=== PATIENT | male | born 2000 | race Caucasian/White ===

== ENCOUNTER 2022-06-24 23:02 | Inpatient (IN) | payer BC, SELFPAY ==
[2022-06-24 23:09] VITALS: BP 154/96; PULSE 80; RESP 20; TEMP 36.7; O2SAT 99; BMI 32.5
[2022-06-24 23:38] LABS: MANUAL DIFF FLAG NO
[2022-06-24 23:44] LABS: Basophils Absolute Auto 0.1 X10*3/uL (0.0-0.2); Basophils Percent Auto 0.6 % (0-2); Eosinophils Absolute Auto 0.2 X10*3/uL (0.0-0.4); Eosinophils Percent Auto 1.7 % (0-4); Hematocrit 43.8 % (42.0-52.0); Hemoglobin 14.8 g/dl (14.0-18.0); Imm Gran Abs Auto 0.02 X10*3/uL (0.00-0.03); Imm Gran Pct Auto 0.2 % (0.0-0.4); Lymphocytes Absolute Auto 3.4 X10*3/uL (1.2-4.9); Lymphocytes Percent Auto 38.1 % (20-40); Mean Corpuscular HGB Conc 33.8 g/dl (31.0-36.0); Mean Corpuscular Hemoglobin 29.3 pg (27.0-33.0); Mean Corpuscular Volume 86.7 fL (80.0-98.0); Mean Platelet Volume 8.4 fL (9.4-12.4); Monocytes Absolute Auto 0.5 X10*3/uL (0.1-1.2); Monocytes Percent Auto 5.2 % (2-11); Neutrophils Absolute Auto 4.8 x10*3/uL (2.0-8.3); Neutrophils Percent Auto 54.2 % (45-73); Platelet Count 253 X10*3/uL (160-400); Red Blood Count 5.05 X10*6/uL (4.60-5.80); Red Cell Distribution Width 12.5 % (11.0-16.0); White Blood Count 8.8 X10*3/uL (4.8-10.8)
[2022-06-24 23:44] LABS: COVID-19 Test Negative (Negative); IDNOW Serial# 08D9AD1C
[2022-06-24 23:56] LABS: Ethanol < 10 mg/dL
[2022-06-24 23:57] LABS: Alanine Aminotransferase 45 U/L (0-40); Albumin Level 4.6 g/dL (3.5-5.0); Alkaline Phosphatase 80 U/L (39-117); Anion Gap 12 (12-20); Aspartate Amino Transferase 22 U/L (5-37); Bilirubin Total 0.4 mg/dL (0.0-1.0); Blood Urea Nitrogen 9 mg/dL (9-16); Carbon Dioxide 26 mmol/L (22-29); Chloride 106 mmol/L (96-108); Creatinine Clr Calc Pharmacy 164.5; Estimated Glomerular Filt Rate > 60; Glucose Random 114 mg/dL (60-115); Potassium 4.2 mmol/L (3.3-5.1); Sodium 140 mmol/L (135-145); Total Protein 7.2 g/dL (6.5-8.0)
--- NOTE | 2022-06-24 23:59 | ED.PSYCH ---
HPI - Psych General Chief Complaint: Psychiatric Symptoms Stated Complaint: mental health check up Time Seen by Provider: 06/24/22 23:25 Source: patient Mode of arrival: ambulatory Limitations: no limitations History of Present Illness HPI Narrative: This is a 22-year-old male history anxiety, depression presenting to the emergency department with suicidal, homicidal ideation, non med compliance and requesting to go inpatient. Patient tells me he just has not been feeling right for the past 5 days. He tells me he is not taking his medications because he forgets. Patient reports that he has been cutting himself in hopes to harm himself and so he can ?drink the blood ?. He also reports he wants to cut other people in hopes to drink there blood. Denies visual, auditory and tactile hallucinations. Denies drugs, alcohol and tobacco. Denies medical complaints at this time. Related Data Home Medications Medication Instructions Recorded Confirmed aripiprazole 10 mg tablet 10 mg PO DAILY 06/24/22 06/24/22 cholecalciferol (vitamin D3) 25 25 mcg PO DAILY 06/24/22 06/24/22 mcg (1,000 unit) tablet (Vitamin D3) fluoxetine 20 mg capsule 80 mg PO DAILY 06/24/22 06/24/22 haloperidol 0.5 mg tablet 0.5 mg PO QAM 06/24/22 06/24/22 haloperidol 0.5 mg tablet 1 mg PO BEDTIME 06/24/22 06/24/22 hydroxyzine HCl 50 mg tablet 100 mg PO BEDTIME 06/24/22 06/24/22 methylphenidate HCl 54 mg 54 mg PO QAM 06/24/22 06/24/22 tablet,extended release 24 hr pyridoxine (vitamin B6) 100 mg 100 mg PO DAILY 06/24/22 06/24/22 tablet Allergies Allergy/AdvReac Type Severity Reaction Status Date / Time amoxicillin Allergy Rash Verified 06/24/22 23:17 Review of Systems Review of Systems: Constitutional : No Weight loss, No Fever, No Chills, No Fatigue, No Malaise ENT/Mouth : No sore throat, No Rhinorrhea Eyes: No Eye Pain, No Swelling, No Redness Cardiovascular : No Chest Pain, No SOB, No Dyspnea on Exertion, No Orthopnea, No Edema, No Palpitations Respiratory : No Cough, No Sputum, No Wheezing Gastrointestinal : No Nausea, No Vomiting, No Diarrhea, No Constipation, No abdominal Pain, No Hematochezia, No Melena Genitourinary : No Dysuria, No Urinary Frequency, No Hematuria, Musculoskeletal : No joint pain, No Myalgias, No Joint Swelling Skin : No Skin Lesions, No rash Neuro : No Weakness, No Numbness, No Dizziness, No Headache Psych : No Anxiety/Panic, No Depression, + SI & HI All other systems reviewed and are negative Yes all other systems are reviewed and are negative [facility] Past Medical History Attestation statement: The following information was validated with the patient. Source: old records reviewed and nursing notes reviewed Social History Social History Advance Directives: No Advance Directives Information Provided: Yes Healthcare Proxy: No Guardian: No Physical Exam Vital Signs: Vital Signs: Last Vital Signs Temp 98.1 F 06/24/22 23:09 Pulse 80 06/24/22 23:09 Resp 20 06/24/22 23:09 BP 154/96 H 06/24/22 23:09 Pulse Ox 99 06/24/22 23:09 BMI result Body Mass Index 32.5 vss Appearance: Alert.? Oriented X3.? No acute distress.? Head: Normocephalic, atraumatic, no step-offs or deformities Eyes: Pupils equal, round and reactive to light.? ENT: Pharynx normal.? Neck: Normal inspection.? Neck supple.? CVS: Normal heart rate and rhythm.? Pulses normal.? Respiratory: No respiratory distress.? Breath sounds normal.? Abdomen: Soft and nontender.? Skin: Skin warm and dry.? Normal skin color.? Normal skin turgor.? Extremities: No lower extremity edema.? No calf ttp. 5/5 strength to bilateral upper and lower extremities Neuro: Oriented X 3.? No motor deficit.? No sensory deficit. CN 2-12 intact Course Reevaluation(s) Reevaluation #1: CBC within normal limits. Chemistry with no acute findings requiring intervention. Ethanol negative. COVID negative. This time patient to be placed into observation to allow more time to be evaluated by the behavioral health team. At time observation was started patient common cooperative no acute distress will continue to monitor Time: 00:02 Reevaluation #2: Inpatient bed search Medical Decision Making Medical Decision Making [facility] Narrative: 2340 22-year-old male presents with suicidal and homicidal ideation for the past 5 days and non med compliant. He states he is looking to drink people's blood and his own blood. Physical exam benign Concerns for possible schizophrenia, bipolar disorder, severe depression, anxiety. Unlikely metabolic derangement Plan medical clearance evaluation by the behavioral health team I suspect this patient would benefit from inpatient psychiatric admission Differential Diagnosis Differential Diagnoses: The differential diagnosis associated with the presentation includes Concerns for possible schizophrenia, bipolar disorder, severe depression, anxiety. Unlikely metabolic derangement Admission/Observation Consideration of admission/observation: Escalation of care including admission/observation considered Lab Data MDM Lab Attestation statement: I reviewed the patient's lab results. 06/24/22 23:31 06/24/22 23:31 Labs: Lab Results 06/24/22 06/24/22 06/24/22 Range/Units 23:19 23:31 23:31 WBC 8.8 (4.8-10.8) X10*3/uL RBC 5.05 (4.60-5.80) X10*6/uL Hgb 14.8 (14.0-18.0) g/dl Hct 43.8 (42.0-52.0) % MCV 86.7 (80.0-98.0) fL MCH 29.3 (27.0-33.0) pg MCHC 33.8 (31.0-36.0) g/dl RDW 12.5 (11.0-16.0) % Plt Count 253 (160-400) X10*3/uL MPV 8.4 L (9.4-12.4) fL Immature Gran % (Auto) 0.2 (0.0-0.4) % Neut % (Auto) 54.2 (45-73) % Lymph % (Auto) 38.1 (20-40) % [place] % (Auto) 5.2 (2-11) % Eos % (Auto) 1.7 (0-4) % Baso % (Auto) 0.6 (0-2) % Lymph # (Auto) 3.4 (1.2-4.9) X10*3/uL [place] # (Auto) 0.5 (0.1-1.2) X10*3/uL Eos # (Auto) 0.2 (0.0-0.4) X10*3/uL Baso # (Auto) 0.1 (0.0-0.2) X10*3/uL Abs Immat Gran (auto) 0.02 (0.00-0.03) X10*3/uL Absolute Neuts (auto) 4.8 (2.0-8.3) x10*3/uL Absolute Nucleated RBC 0.000 (0.0-0.012) X10*3/uL Nucleated RBC % (auto) 0.0 (0.0-0.2) /100WBC Sodium 140 (135-145) mmol/L Potassium 4.2 (3.3-5.1) mmol/L Chloride 106 (96-108) mmol/L Carbon Dioxide 26 (22-29) mmol/L Anion Gap 12 (12-20) BUN 9 (9-16) mg/dL Creatinine 0.82 (0.5-1.4) mg/dL Estim Creat Clear Calc 164.5 Estimated GFR > 60 Random Glucose 114 (60-115) mg/dL Calcium 10.0 (8.4-10.2) mg/dL Total Bilirubin 0.4 (0.0-1.0) mg/dL AST 22 (5-37) U/L ALT 45 H (0-40) U/L Alkaline Phosphatase 80 (39-117) U/L Total Protein 7.2 (6.5-8.0) g/dL Albumin 4.6 (3.5-5.0) g/dL Urine Opiates Screen (Not Detect) Urine Fentanyl Screen (Not Detect) Ur Barbiturates Screen (Not Detect) Ur Phencyclidine Scrn (Not Detect) Ur Amphetamines Screen (Not Detect) U Benzodiazepines Scrn (Not Detect) Urine Cocaine Screen (Not Detect) U Marijuana (THC) Screen (Not Detect) Ethyl Alcohol mg/dL COVID-19 (ABI) Negative (Negative) COVID-19 Clin Com See Note 06/24/22 06/24/22 Range/Units 23:31 23:41 WBC (4.8-10.8) X10*3/uL RBC (4.60-5.80) X10*6/uL Hgb (14.0-18.0) g/dl Hct (42.0-52.0) % MCV (80.0-98.0) fL MCH (27.0-33.0) pg MCHC (31.0-36.0) g/dl RDW (11.0-16.0) % Plt Count (160-400) X10*3/uL MPV (9.4-12.4) fL Immature Gran % (Auto) (0.0-0.4) % Neut % (Auto) (45-73) % Lymph % (Auto) (20-40) % [place] % (Auto) (2-11) % Eos % (Auto) (0-4) % Baso % (Auto) (0-2) % Lymph # (Auto) (1.2-4.9) X10*3/uL [place] # (Auto) (0.1-1.2) X10*3/uL Eos # (Auto) (0.0-0.4) X10*3/uL Baso # (Auto) (0.0-0.2) X10*3/uL Abs Immat Gran (auto) (0.00-0.03) X10*3/uL Absolute Neuts (auto) (2.0-8.3) x10*3/uL Absolute Nucleated RBC (0.0-0.012) X10*3/uL Nucleated RBC % (auto) (0.0-0.2) /100WBC Sodium (135-145) mmol/L Potassium (3.3-5.1) mmol/L Chloride (96-108) mmol/L Carbon Dioxide (22-29) mmol/L Anion Gap (12-20) BUN (9-16) mg/dL Creatinine (0.5-1.4) mg/dL Estim Creat Clear Calc Estimated GFR Random Glucose (60-115) mg/dL Calcium (8.4-10.2) mg/dL Total Bilirubin (0.0-1.0) mg/dL AST (5-37) U/L ALT (0-40) U/L Alkaline Phosphatase (39-117) U/L Total Protein (6.5-8.0) g/dL Albumin (3.5-5.0) g/dL Urine Opiates Screen Not Detected (Not Detect) Urine Fentanyl Screen Not Detected (Not Detect) Ur Barbiturates Screen Not Detected (Not Detect) Ur Phencyclidine Scrn Not Detected (Not Detect) Ur Amphetamines Screen Not Detected (Not Detect) U Benzodiazepines Scrn Not Detected (Not Detect) Urine Cocaine Screen Not Detected (Not Detect) U Marijuana (THC) Screen Not Detected (Not Detect) Ethyl Alcohol < 10 mg/dL COVID-19 (ABI) (Negative) COVID-19 Clin Com Core Measures AMI core measures followed: Yes Measure exclusions: not indicated Discharge Plan Discharge Clinical Impression: Acute anxiety, Suicidal ideation, Homicidal ideation Patient Disposition: Still a Patient Prescriptions: No Action haloperidol 0.5 mg tablet 0.5 mg PO QAM haloperidol 0.5 mg tablet 1 mg PO BEDTIME methylphenidate HCl 54 mg tablet extended release 24hr 54 mg PO QAM hydroxyzine HCl 50 mg tablet 100 mg PO BEDTIME pyridoxine (vitamin B6) 100 mg tablet 100 mg PO DAILY fluoxetine 20 mg capsule 80 mg PO DAILY aripiprazole 10 mg tablet 10 mg PO DAILY cholecalciferol (vitamin D3) [Vitamin D3] 25 mcg (1,000 unit) tablet 25 mcg PO DAILY Interventions: [place]-Suicide Risk Severity Scale Last Done: 06/25/22 00:43
[2022-06-25 00:05] LABS: Amphetamine Screen Urine Not Detected (Not Detect); Barbiturates, Urine Not Detected (Not Detect); Benzodiazepines Screen Urine Not Detected (Not Detect); Cannabinoid Screen Urine Not Detected (Not Detect); Cocaine Screen Urine Not Detected (Not Detect); Opiate Screen Urine Not Detected (Not Detect); Phencyclidine Screen Urine Not Detected (Not Detect)
[2022-06-25 00:10] LABS: Fentanyl, urine Not Detected (Not Detect)
--- NOTE | 2022-06-25 05:57 | PC.NURSE ---
Patient slept through the night, no distress observed/reported, disposition per care team is section 12 inpatient bed search, behavior pleasant and non concerning, VSS, labs completed/resulted, med rec completed/pending provider's approval, will continue to monitor.
--- NOTE | 2022-06-25 13:34 | MHC.CARE ---
Statewide bedsearch completed. [facility] has beds but are not accepting referrals for review at this time due to unit acuity and staffing. Bedsearch exhausted for today.
--- NOTE | 2022-06-25 14:50 | PC.NURSE ---
Mother and Father in, Releases signed and in chart.
--- NOTE | 2022-06-25 16:30 | PC.NURSE ---
Pt denies SI, HI, reports wanting to drink others blood but claims he only drinks his own blood. Pt slept this shift. Ate meals and watched TV.
[2022-06-25 19:54] VITALS: BP 123/69; PULSE 69; RESP 16; TEMP 36.6; O2SAT 99
[2022-06-26 05:32] VITALS: BP 124/79; PULSE 75; RESP 16; TEMP 36.7; O2SAT 98
--- NOTE | 2022-06-26 10:41 | PM.PSYCN ---
History of Present Illness Date of Service: 06/26/2022 Chief Complaint: mental health check up Reason for Consult: psychosis Requesting physician: Ric Wells Discussed with referring provider: Yes Sources of Information: patient interviewed, chart reviewed and crisis/core team assessment reviewed HPI Narrative: Mr. Parikh is a 22 year-old male with hx of schizoaffective disorder who was brought to [facility] by mother due to increase ideas of needing to drink his blood and other people's blood to prevent his blood from evaporating. This is different from suicidality in that pt is not trying to end his life, although inadvertently can cause significant harm if he injuries himself to drink his blood. In the ED, his utox is negative. Pt reports he has not taken medications for a week or more. Pt reports he has been working at [employer] for 5 years and loves it. He reports he noticed that he was feeling weak and fatigued which he explains is when he knows his blood is evaporating. Pt reports he does know that he has to drink his blood to live longer. When asked about drinking other people's blood pt states he is not planning to do that, that he is more concern about drinking his own blood. He reports sleeping and eating well. He denies visual or auditory hallucinations. Collateral information was gathered from his OP psych provider Nancy Zambrano who reports pt has been dx between personality to schizoaffective and OCD. Per psych provider, pt has had on an off ideas of needing to drink his own blood to increase his libido to doing so to prevent from evaporating. Nancy Zambrano reports that he has poked himself superficially in the past but no requiring medical intervention. Nancy also reports that it is new that he reports need to drink other people's blood. Diagnostics Vital Signs (24Hr): Vital Signs - 24 hr 06/25/22 19:54 06/26/22 05:32 Temperature 97.8 F 98.0 F Pulse Rate 69 75 Respiratory Rate 16 16 Blood Pressure 123/69 124/79 Pulse Oximetry 99 98 Oxygen Delivery Method Room Air Room Air BMI result Body Mass Index 32.5 Labs 06/24/22 23:31 06/24/22 23:31 Labs: Laboratory Results - last 48 hr 06/24/22 06/24/22 06/24/22 23:19 23:31 23:31 WBC 8.8 RBC 5.05 Hgb 14.8 Hct 43.8 MCV 86.7 MCH 29.3 MCHC 33.8 RDW 12.5 Plt Count 253 MPV 8.4 L Immature Gran % (Auto) 0.2 Neut % (Auto) 54.2 Lymph % (Auto) 38.1 [place] % (Auto) 5.2 Eos % (Auto) 1.7 Baso % (Auto) 0.6 Lymph # (Auto) 3.4 [place] # (Auto) 0.5 Eos # (Auto) 0.2 Baso # (Auto) 0.1 Abs Immat Gran (auto) 0.02 Absolute Neuts (auto) 4.8 Absolute Nucleated RBC 0.000 Nucleated RBC % (auto) 0.0 Sodium 140 Potassium 4.2 Chloride 106 Carbon Dioxide 26 Anion Gap 12 BUN 9 Creatinine 0.82 Estim Creat Clear Calc 164.5 Estimated GFR > 60 Random Glucose 114 Calcium 10.0 Total Bilirubin 0.4 AST 22 ALT 45 H Alkaline Phosphatase 80 Total Protein 7.2 Albumin 4.6 Urine Opiates Screen Urine Fentanyl Screen Ur Barbiturates Screen Ur Phencyclidine Scrn Ur Amphetamines Screen U Benzodiazepines Scrn Urine Cocaine Screen U Marijuana (THC) Screen Ethyl Alcohol COVID-19 (ABI) Negative COVID-19 Clin Com See Note 06/24/22 06/24/22 23:31 23:41 WBC RBC Hgb Hct MCV MCH MCHC RDW Plt Count MPV Immature Gran % (Auto) Neut % (Auto) Lymph % (Auto) [place] % (Auto) Eos % (Auto) Baso % (Auto) Lymph # (Auto) [place] # (Auto) Eos # (Auto) Baso # (Auto) Abs Immat Gran (auto) Absolute Neuts (auto) Absolute Nucleated RBC Nucleated RBC % (auto) Sodium Potassium Chloride Carbon Dioxide Anion Gap BUN Creatinine Estim Creat Clear Calc Estimated GFR Random Glucose Calcium Total Bilirubin AST ALT Alkaline Phosphatase Total Protein Albumin Urine Opiates Screen Not Detected Urine Fentanyl Screen Not Detected Ur Barbiturates Screen Not Detected Ur Phencyclidine Scrn Not Detected Ur Amphetamines Screen Not Detected U Benzodiazepines Scrn Not Detected Urine Cocaine Screen Not Detected U Marijuana (THC) Screen Not Detected Ethyl Alcohol < 10 COVID-19 (ABI) COVID-19 Clin Com Mental Status Exam Mental Status Exam Narrative: Appearance: wearing hospital gown, fair hygiene, in NAD Behavior: cooperative Speech: clear, normal rate/rhythm/volume, spontaneous Psychomotor: no agitation or retardation noted TP: linear TC: with ideas of needing to drink his blood but does any need to drink other's blood Mood: better Affect: congruent, brighten with talking about his job and how much he loves his job Si: denies- idea of drinking his own blood is not to end his life but prolong it. HI: denies Delusions: ideas of blood evaporating VH/AH: none Insight/judgment: fair x 2. Memory/cog: alert, oriented x 3. grossly intact to conversational testing. Medications Allergies Allergies Allergy/AdvReac Type Severity Reaction Status Date / Time amoxicillin Allergy Rash Verified 06/24/22 23:17 Assessment & Plan Assessment & Plan (1) Schizophrenia: Status: Acute Code(s): F20.9 - Schizophrenia, unspecified Plan Mr. Parikh is 22 year-old male with hx of schizoaffective, OCD, to personality disorder with periods of reporting ideas of needing to drink his blood for number of reasons including to prevent it from evaporating to increasing libido. He also reported wanting to drink other people's blood which he now denies. He presents with a linear thought process. no significant decline in level of functioning as typically seen in schizoprenia-spectrum disorders. When trying to assess whether these were intrusive thoughts like in OCD or delusions, pt reports he does believe he needs to drink his own blood to live longer. He denies any plan or intent to harm anyone or even himself. Pt on different medications including stimulant, high dose prozac, low dose haldol and abilify. Discussed risks, benefits and alternative treatment options with patient and his outpatient director of psychology Nancy Zambrano. Will continue haldol for now at higher dose, hold on stimulant and prozac as may worsen psychosis but this can be reassessed. PLAN 1. Pt voluntary for inpatient level of care. 2. will start haldol 5 mg po daily. Total time managing care of this patient today __25__ minutes.
[2022-06-26] MEDS: Cholecalciferol (Vitamin D3) 25 MCG TABLET PO (12:51)
[2022-06-26] MEDS: HaloperidoL 5 MG TABLET PO (12:51)
[2022-06-26 13:50] LABS: Appearance Urine Clear; Color Urine Yellow; Glucose Urine UA Negative (Negative); Leukocyte Esterase Urine Negative (Negative); Nitrite Urine Negative (Negative); PH 6.5 (5.0-9.0); Specific Gravity - Urine <= 1.005 (1.005-1.025); Urine Blood Negative (Negative); Urine Ketones Negative (Negative); Urine Protein Negative (Neg-Trace)
[2022-06-26 18:46] VITALS: BP 131/76; PULSE 83; TEMP 36.4
[2022-06-26] MEDS: hydrOXYzine HCL 50 MG TABLET 100 MG PO (20:14)
[2022-06-26] MEDS: traZODone HCL 50 MG TABLET PO (20:14)
--- NOTE | 2022-06-26 20:21 | PC.ADMIT ---
Pt is a 22 year old male presenting to [facility] [place] with SI/HI with plans to cut himself and others to drink his blood and others. Pt UTOX negative for all substances, pt also denies other substance use. Pt is wearing hospital johnnies, also wears glasses. Pt blood pressure is131/76, pulse 83, and temp 97.6. Pt has been non medication compliant for the past month. Pt stated I just forget to take my meds then after awhile I feel like I don't need them but I do. Pt reports feeling like he's in a daze. Pt denies SI/HI at this time. Pt also denies AH/VH. Pt reported he used to cut his knees to drink his blood but the cuts are now healed. Pt denies ever cutting others, hurting others, or drinking their blood. Pt reports issues falling asleep. Pt states he has no anxiety and no depression. Pt is looking to get his medications figured out. Pt is pleasant, calm and in behavioral control. Pt states he is safe on the unit, can come to staff for help if feeling suicidal or homicidal. MD aware of admission, orders placed, monitor for safety and begin treatment plan.
[2022-06-27 08:05] VITALS: BP 120/75; PULSE 89; RESP 16; TEMP 36.3; O2SAT 99
[2022-06-27] MEDS: Pyridoxine HCl (Vitamin B6) 50 MG TABLET 100 MG PO (08:24)
[2022-06-27] MEDS: Cholecalciferol (Vitamin D3) 25 MCG TABLET PO (08:24)
[2022-06-27] MEDS: HaloperidoL 5 MG TABLET PO (08:24)
[2022-06-27 11:00] LABS: Estimated Average Glucose 103 mg/dL; Hemoglobin A1c % 5.2 %
[2022-06-27 12:46] LABS: Alanine Aminotransferase 52 U/L (0-40); Albumin Level 4.3 g/dL (3.5-5.0); Alkaline Phosphatase 73 U/L (39-117); Anion Gap 10 (12-20); Aspartate Amino Transferase 25 U/L (5-37); Bilirubin Total 0.7 mg/dL (0.0-1.0); Blood Urea Nitrogen 10 mg/dL (9-16); Calcium 9.8 mg/dL (8.4-10.2); Carbon Dioxide 31 mmol/L (22-29); Chloride 105 mmol/L (96-108); Cholesterol 219 mg/dL; Creatinine Clr Calc Pharmacy 143.5; Estimated Glomerular Filt Rate > 60; Glucose Fasting 85 mg/dL (60-99); HDL Cholesterol 39 mg/dL; LDL Cholesterol Calculated 116 mg/dl; Potassium 4.7 mmol/L (3.3-5.1); Sodium 141 mmol/L (135-145); Triglycerides 324 mg/dL
[2022-06-27 12:54] LABS: Thyroid Stimulating Hormone 0.99 uIU/mL (0.32-4.0); Vitamin B12 542 pg/mL (200-900)
[2022-06-27] MEDS: FLUoxetine HCl 20 MG CAPSULE 80 MG PO (13:02)
--- NOTE | 2022-06-27 14:38 | P.HPPS_ITS ---
Documented by User: Cheyanne Proctor NP 06/27/22 16:39 HPI Date of Service: 06/27/22 Chief Complaint: Psychosis Sources of Information: patient interviewed, chart reviewed and crisis/core team assessment reviewed HPI Subjective Notes: Bain Warning and Conditional Voluntary Medical Problems Affecting Mental Status: No Narrative: Patient is a 22 year old male who carries a diagnosis of schizoaffective d/o depressive type, that self presented to the [facility] secondary to suicidal and homicidal ideation with thoughts of cutting himself and others, to drink their blood. Patient reports he has not been consistently taking his medications for the past month. Patient reports that once he feels fine he feels like he does not need them. Patient stated he came to the hospital because he wanted to start his mediations again in a safe place and wanted to get on an injectable medication . Patient reports he has been on the same mediation regimen for the past two years and have been helpful in his symptoms.Patient reports the delusions of drinking blood began two years ago and believes he is a vampire. Patient stated, I don't know where it came from. I was just in the shower once day and wondered what blood tasted like and it started from there. I have to drink blood to stay young and not age. I haven't cut my knees in a month and haven't drank blood in 2 months . Patient reports when he has thoughts of drinking other peoples blood it is not to kill them . Patient denies any pe rceptual disturbances at this time. Patient reports he was born a vampire and he is the only one he knows. Patient stated, it's not that I need to drink blood, it's that I feel like I should . Past Psychiatric History: Patient was diagnosed with ADHD as a child, Bipolar d/o during adolescents and recently, Schizoaffective d/o, depressive type. Patient sees Elizabeth Zambrano as a prescriber and Milagros at [facility] for therapy. Patient has had one prior inpatient admission in 2019 at [facility]. Patient has a history of noncompliance with medication and treatment. Per crisis report, the patients mother states that he never takes the advice of his therapists or [facility] workers . Patient states he is hoping to get an injectable medication once a month since he forgets to take his meds and thinks he doesn't need them when he feels better . No history of suicide attempts. Patient does have a history of cutting himself to drink his own blood. Patient stated, I don't cut to feel good. I cut myself to drink blood . Patient reports he sleeps 8-9hrs a night. Patient denies any hiro symptoms, other than excessive spending. Patient stated, I like buying collectables . [facility] Narrative: Patient denies any medical issues. Narrative: Elizabeth Zambrano is prescriber. Milagros [facility] is therapist. Patient has had one previous inpatient hospitalization in 2019 at [facility]. Family History: Mother and sister have depression. Social History: Lives with mother, father and grandfather. Has been working at [employer], highway design engineer, for the past five years. Substance History: None Trauma History: None Diagnostics Vital Signs (24Hr): Vital Signs - 24 hr 06/26/22 18:46 06/27/22 08:05 Temperature 97.6 F 97.3 F Pulse Rate 83 89 Respiratory Rate 16 Blood Pressure 131/76 120/75 Pulse Oximetry 99 BMI result Body Mass Index 32.5 Labs 06/24/22 23:31 06/27/22 08:08 Labs: Laboratory Results - last 48 hr 06/26/22 06/27/22 06/27/22 13:33 08:08 08:08 Sodium 141 Potassium 4.7 Chloride 105 Carbon Dioxide 31 H Anion Gap 10 L BUN 10 Creatinine 0.94 Estim Creat Clear Calc 143.5 Estimated GFR > 60 Fasting Glucose 85 Estimat Average Glucose 103 Hemoglobin A1c % 5.2 Calcium 9.8 Total Bilirubin 0.7 AST 25 ALT 52 H Alkaline Phosphatase 73 Total Protein 7.0 Albumin 4.3 Triglycerides 324 Cholesterol 219 LDL Cholesterol, Calc 116 HDL Cholesterol 39 Vitamin B12 542 TSH 0.99 Urine Color Yellow Urine Appearance Clear Urine pH 6.5 Ur Specific [place] <= 1.005 Urine Protein Negative Urine Glucose (UA) Negative Urine Ketones Negative Urine Blood Negative Urine Nitrite Negative Ur Leukocyte Esterase Negative Meds/Allergies Meds Home Medications Medication Instructions Recorded Confirmed Type aripiprazole 10 mg tablet 10 mg PO DAILY 06/24/22 06/24/22 History cholecalciferol (vitamin D3) 25 25 mcg PO DAILY 06/24/22 06/24/22 History mcg (1,000 unit) tablet (Vitamin D3) fluoxetine 20 mg capsule 80 mg PO DAILY 06/24/22 06/24/22 History haloperidol 0.5 mg tablet 0.5 mg PO QAM 06/24/22 06/24/22 History haloperidol 0.5 mg tablet 1 mg PO BEDTIME 06/24/22 06/24/22 History hydroxyzine HCl 50 mg tablet 100 mg PO BEDTIME 06/24/22 06/24/22 History methylphenidate HCl 54 mg 54 mg PO QAM 06/24/22 06/24/22 History tablet,extended release 24 hr pyridoxine (vitamin B6) 100 mg 100 mg PO DAILY 06/24/22 06/24/22 History tablet Allergies Allergies Allergy/AdvReac Type Severity Reaction Status Date / Time amoxicillin Allergy Rash Verified 06/24/22 23:17 Mental Status Exam Mental Status Exam Narrative: Pt is alert and oriented; behavior is cooperative, friendly and calm; patient is not in distress; dressed in casual attire; mood is described as okay and affect congruent; eye contact appropriate; Speech is normal rate, volume and prosody and not pressured; no psychomotor agitation/retardation present; thought process is organized and goal directed; Thought content is on tx; otherwise pertinent to relevant topics; Patient presents with delusions of needing to drink blood to remain young and live forever . denies any SI/HI. There is no evidence of perceptual disturbance. Patients insight and judgment appear poor. Assessment & Plan Assessment & Plan (1) Delusional disorder: Status: Acute Code(s): F22 - Delusional disorders Plan PLAN: CV 15 min safety checks Obtain collateral information DC Haldol 5mg PO daily Continue Abilify 10mg PO daily Continue Fluoxetine 80mg PO daily Continue Hydroxyzine 100mg PO bedtime 06/27: Patient reports he would like to receive an injectable medication so he doesn't have to take medication everyday . Patient calm and cooperative during 1:1 meeting. Patient is hoping to be discharged soon and return to work. Based off of initial interview with T/W, patient could have delusional d/o d/t denying any history of auditory or visual hallucinations. 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 Patient educated on: medication risk/benefits Informed Consent: understands Reason for continued inpatient stay Substantial Risk for: med/psych decompensation Statement Statement: I have reviewed the history and physical and performed a pertinent examination on my patient. No changes have occurred unless specified. If the History and Physical was not performed prior to admission, the Hospitalist's service will be consulted for completing the admission physical. Time Spent With Patient Time: Total time managing care of this patient today ____ minutes. Documented by User: Chidi Alfaro MD 06/27/22 16:41 HPI Chief Complaint: Psychosis HPI Narrative: Patient is a 22 year old male who carries a diagnosis of schizoaffective d/o depressive type, that self-presented to the [facility] secondary to increasing delusional ideations and thoughts of cutting himself and others, to drink their blood in face of going off medications. On medications for the past 2 years, he reports he feels fine but then eventually does not feel he still needs them and stopped taking them consistently about a month ago. Since then his thoughts about being a vampire and and urges to drink his and others blood have increased. Patient reports that for the past 2 years, he believes he was born a vampire and subsequently has desire to drink his and others blood.. Patient stated, I don't know where it came from. I was just in the shower once day and wondered what blood tasted like and it started from there. I have to drink blood to stay young and not age. I haven't cut my knees in a month and haven't drank blood in 2 months . Patient stated he came to the hospital because he wanted to start his mediations again in a safe place and wanted to get on an injectable medication in effort to mitigate these urges. Patient reports when he has thoughts of drinking other peoples blood it is not to kill them . Patient denies any perceptual disturbances at this time. Patient reports he was born a vampire and he is the only one he knows. Patient stated, it's not that I need to drink blood, it's that I feel like I should . Patient denies any any AVH; he denies SI at all past or present; denies any HI at all ever; denies history of manic type behaviors or episodes; denies any drug or alcohol abuse. Patient is amenable to restarting Abilify and Prozac and may be haldol. Care team note reported patient had SI and HI however patient adamantly refuse any such thoughts. Medical Evaluation Reviewed: Yes Diagnostics Labs 06/24/22 23:31 06/27/22 08:08 Meds/Allergies Meds Home Medications Medication Instructions Recorded Confirmed Type aripiprazole 10 mg tablet 10 mg PO DAILY 06/24/22 06/24/22 History cholecalciferol (vitamin D3) 25 25 mcg PO DAILY 06/24/22 06/24/22 History mcg (1,000 unit) tablet (Vitamin D3) fluoxetine 20 mg capsule 80 mg PO DAILY 06/24/22 06/24/22 History haloperidol 0.5 mg tablet 0.5 mg PO QAM 06/24/22 06/24/22 History haloperidol 0.5 mg tablet 1 mg PO BEDTIME 06/24/22 06/24/22 History hydroxyzine HCl 50 mg tablet 100 mg PO BEDTIME 06/24/22 06/24/22 History methylphenidate HCl 54 mg 54 mg PO QAM 06/24/22 06/24/22 History tablet,extended release 24 hr pyridoxine (vitamin B6) 100 mg 100 mg PO DAILY 06/24/22 06/24/22 History tablet Allergies Allergies Allergy/AdvReac Type Severity Reaction Status Date / Time amoxicillin Allergy Rash Verified 06/24/22 23:17 Assessment & Plan Assessment & Plan (1) Delusional disorder: Status: Acute Code(s): F22 - Delusional disorders Assessment and Plan: r/o schizoaffective Plan Patient is a 22 year old male who carries a diagnosis of schizoaffective d/o de pressive type, that self-presented to the [facility] secondary to increasing delusional ideations and thoughts of cutting himself and others, to drink their blood in face of going off medications. -Patient reports he would like to receive an injectable medication so he doesn't have to take medication everyday . Patient calm and cooperative during 1:1 meeting; patient organized in speech and behavior. 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 Based off of initial interview with T/W, Will change dx to delusional d/o since pt denying any history of auditory or visual hallucinations; however, will leave as provisional diagnosis since meeting patient for the 1st time. 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 There is some thoughts about some OCD like symptoms as patient reports he feels he should drink people's blood; patient has a history of depression PLAN: CV 15 min safety checks Obtain collateral information DC Haldol 5mg PO daily; patient was only ever on total daily dose of 1.5 mg daily; since patient reports Abilify was working, will DC this med to avoid polypharmacy Continue Abilify 10mg PO daily; will consider long-acting Abilify Maintena Continue Fluoxetine 80mg PO daily Continue Hydroxyzine 100mg PO bedtime Past med trials: Risperidone Grace Parsons Patient educated on: diagnosis Informed Consent: does not understand and further education needed
[2022-06-27 16:38] VITALS: BP 131/76; PULSE 64; TEMP 36.7
[2022-06-27] MEDS: traZODone HCL 50 MG TABLET PO (20:05)
[2022-06-27] MEDS: hydrOXYzine HCL 50 MG TABLET 100 MG PO (20:05)
[2022-06-28 08:41] VITALS: BP 130/58; PULSE 81; RESP 18; TEMP 36.7; O2SAT 100
[2022-06-28] MEDS: Cholecalciferol (Vitamin D3) 25 MCG TABLET PO (08:46)
[2022-06-28] MEDS: ARIPiprazole 10 MG TABLET PO (08:46)
[2022-06-28] MEDS: FLUoxetine HCl 20 MG CAPSULE 80 MG PO (08:46)
[2022-06-28] MEDS: Pyridoxine HCl (Vitamin B6) 50 MG TABLET 100 MG PO (08:46)
--- NOTE | 2022-06-28 13:08 | P.PNPSI_ITS ---
Subjective Subjective Date of Service: 06/28/22 Reason For Visit: Psychosis Subjective Notes: Conditional Voluntary Medical Problems Affecting Mental Status: No Interim History: Patient reports feeling fine. Continues to have delusions that he is a vampire and needs to drink blood. Patient is still considering if he would like to be on a long acting injectable or continue taking PO medications. Medication Compliance: Yes Side effects from medications: No Attending Groups: Yes Review of Systems Acute medical concerns: No Medical Review of Systems: unchanged Review of Systems Review of Systems Constitutional : No Weight loss, No Fever, No Chills, No Fatigue, No Malaise ENT/Mouth : No sore throat, No Rhinorrhea Eyes: No Eye Pain, No Swelling, No Redness Cardiovascular : No Chest Pain, No SOB, No Dyspnea on Exertion, No Orthopnea, No Edema, No Palpitations Respiratory : No Cough, No Sputum, No Wheezing Gastrointestinal : No Nausea, No Vomiting, No Diarrhea, No Constipation, No abdominal Pain, No Hematochezia, No Melena Genitourinary : No Dysuria, No Urinary Frequency, No Hematuria, Musculoskeletal : No joint pain, No Myalgias, No Joint Swelling Skin : No Skin Lesions, No rash Neuro : No Weakness, No Numbness, No Dizziness, No Headache Psych : No Anxiety/Panic, No Depression, + SI & HI All other systems reviewed and are negative Yes all other systems are reviewed and are negative Constitutional: Reports as per HPI Eyes: Reports as per HPI Reports as per HPI Cardiovascular: Reports as per HPI Respiratory: Reports as per HPI Gastrointestinal: Reports as per HPI Genitourinary: Reports as per HPI Musculoskeletal: Reports as per HPI Skin/Breast: Reports as per HPI Reports as per HPI Psychiatric: Reports as per HPI Endocrine: Reports as per HPI Hematologic/Lymphatic: Reports as per HPI Allergic/Immunologic: Reports as per HPI Mental Status Exam Mental Status Exam Narrative: Pt is alert and oriented; behavior is cooperative, friendly and calm; patient is not in distress; dressed in casual attire; mood is described as fine and affect congruent; eye contact appropriate; Speech is normal rate, volume and pr osody and not pressured; no psychomotor agitation/retardation present; thought process is organized and goal directed; Thought content is on tx; otherwise pertinent to relevant topics; Patient continues to express delusions of being a vampire and needing to drink blood. Patient stated, last night the feelings of wanting to cut other people went away . denies any SI/HI. There is no evidence of perceptual disturbance. Patients insight and judgment appear poor. Diagnostics Vital Signs (24Hr): Vital Signs - 24 hr 06/27/22 16:38 06/28/22 08:41 Temperature 98.1 F 98.0 F Pulse Rate 64 81 Respiratory Rate 18 Blood Pressure 131/76 130/58 L Pulse Oximetry 100 Oxygen Delivery Method Room Air BMI result Body Mass Index 32.5 Labs 06/24/22 23:31 06/27/22 08:08 Labs: Laboratory Results - last 48 hr 06/26/22 06/27/22 06/27/22 13:33 08:08 08:08 Sodium 141 Potassium 4.7 Chloride 105 Carbon Dioxide 31 H Anion Gap 10 L BUN 10 Creatinine 0.94 Estim Creat Clear Calc 143.5 Estimated GFR > 60 Fasting Glucose 85 Estimat Average Glucose 103 Hemoglobin A1c % 5.2 Calcium 9.8 Total Bilirubin 0.7 AST 25 ALT 52 H Alkaline Phosphatase 73 Total Protein 7.0 Albumin 4.3 Triglycerides 324 Cholesterol 219 LDL Cholesterol, Calc 116 HDL Cholesterol 39 Vitamin B12 542 TSH 0.99 Urine Color Yellow Urine Appearance Clear Urine pH 6.5 Ur Specific [place] <= 1.005 Urine Protein Negative Urine Glucose (UA) Negative Urine Ketones Negative Urine Blood Negative Urine Nitrite Negative Ur Leukocyte Esterase Negative Medications Medications Current Medications Acetaminophen (Acetaminophen 325 Mg Tablet) 650 mg PO Q6H PRN PRN Reason: Headache/Pain Mild Scale (1-3) Al Hydroxide/Mg Hydroxide (Magnesium Hydrox/Alum Hydrox 30 Ml Oral.Susp) 30 ml PO Q6H PRN PRN Reason: Heartburn/Nausea Aripiprazole (Aripiprazole 10 Mg Tablet) 10 mg PO DAILY [facility] Last Admin: 06/28/22 08:46 Dose: 10 mg Fluoxetine HCl (Fluoxetine Hcl 20 Mg Capsule) 80 mg PO DAILY [facility] Last Admin: 06/28/22 08:46 Dose: 80 mg Hydroxyzine HCl (Hydroxyzine Hcl 50 Mg Tablet) 100 mg PO BEDTIME [facility] Last Admin: 06/27/22 20:05 Dose: 100 mg Magnesium Hydroxide (Milk Of Magnesia 30 Ml Oral.Susp) 30 ml PO DAILY PRN PRN Reason: Constipation Non-Formulary Medication (Methylphenidate Hcl) 54 mg PO DAILY@0800 [facility] Pyridoxine HCl (Pyridoxine Hcl (Vitamin B6) 50 Mg Tablet) 100 mg PO DAILY [facility] Last Admin: 06/28/22 08:46 Dose: 100 mg Trazodone HCl (Trazodone Hcl 50 Mg Tablet) 50 mg PO BEDTIME MRX1 PRN PRN Reason: Insomnia Last Admin: 06/27/22 20:05 Dose: 50 mg Vitamin D (Cholecalciferol (Vitamin D3) 25 Mcg Tablet) 25 mcg PO DAILY [facility] Last Admin: 06/28/22 08:46 Dose: 25 mcg Allergies Allergies Allergy/AdvReac Type Severity Reaction Status Date / Time amoxicillin Allergy Rash Verified 06/24/22 23:17 Assessment & Plan Assessment & Plan (1) Delusional disorder: Status: Acute Code(s): F22 - Delusional disorders Assessment and Plan: r/o schizoaffective Plan Patient is a 22 year old male who carries a diagnosis of schizoaffective d/o depressive type, that self-presented to the [facility] secondary to increasing d elusional ideations and thoughts of cutting himself and others, to drink their blood in face of going off medications. -Patient reports he would like to receive an injectable medication so he doesn't have to take medication everyday . Patient calm and cooperative during 1:1 meeting; patient organized in speech and behavior. 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 Based off of initial interview with T/W, Will change dx to delusional d/o since pt denying any history of auditory or visual hallucinations; however, will leave as provisional diagnosis since meeting patient for the 1st time. 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 There is some thoughts about some OCD like symptoms as patient reports he feels he should drink people's blood; patient has a history of depression PLAN: CV 15 min safety checks Obtain collateral information DC Haldol 5mg PO daily; patient was only ever on total daily dose of 1.5 mg d aily; since patient reports Abilify was working, will DC this med to avoid polypharmacy Continue Abilify 10mg PO daily; will consider long-acting Abilify Maintena Continue Fluoxetine 80mg PO daily Continue Hydroxyzine 100mg PO bedtime Past med trials: Risperidone Serovelvet Parsons 06/28: Patient reports feeling fine today. He reports that he only believe I'm a vampire and want to drink blood when I'm not on my medication . He continues to believe he is a vampire and needs to drink his own blood. However, he no longer feels he needs to cut and drink other peoples blood . Patient continues to be interested in long acting injectable medication. Patients insight and judegement continue to be poor at this time. Patient educated on: medication risk/benefits Informed Consent: further education needed Reason for continued inpatient stay Substantial Risk for: med/psych decompensation Time Spent With Patient Time: Total time managing care of this patient today ____ minutes.
[2022-06-28] MEDS: Acetaminophen 325 MG TABLET 650 MG PO (15:57)
[2022-06-28 18:52] VITALS: BP 130/58; PULSE 81; RESP 18; TEMP 37.2; O2SAT 100
[2022-06-28] MEDS: traZODone HCL 50 MG TABLET PO ×2 (20:03→23:18)
[2022-06-28] MEDS: hydrOXYzine HCL 50 MG TABLET 100 MG PO (20:03)
[2022-06-29 07:00] VITALS: BMI 32.0
[2022-06-29 08:15] VITALS: BP 116/61; PULSE 69; RESP 18; TEMP 36.1; O2SAT 98
[2022-06-29] MEDS: FLUoxetine HCl 20 MG CAPSULE 80 MG PO (08:18)
[2022-06-29] MEDS: ARIPiprazole 10 MG TABLET PO (08:19)
[2022-06-29] MEDS: Cholecalciferol (Vitamin D3) 25 MCG TABLET PO (08:19)
[2022-06-29] MEDS: Pyridoxine HCl (Vitamin B6) 50 MG TABLET 100 MG PO (08:19)
--- NOTE | 2022-06-29 12:08 | HO.PSYCHPN ---
Documented by User: Cheyanne Proctor NP 06/29/22 12:22 Subjective Subjective Date of Service: 06/29/22 Reason For Visit: Psychosis Subjective Notes: Conditional Voluntary Interim History: Patient reports feeling good today. Patient stated, I no longer feel like I'm a vampire or that I need to drink blood. Those feelings went away last night . Patient does not present with any other delusions at this time. Patient expressed that he would like to stay on the oral medications rather than getting a long acting injectable. Patient stated, I already spoke with my mom and were both going to put reminders on our phones so I can take my medications every night so I don't feel this way again . He is hoping to be discharged home for Mothers day and return to work. Patient stated, I love my job, it makes me feel good; I cant wait to go back . Medication Compliance: Yes Side effects from medications: No Attending Groups: Yes Review of Systems Acute medical concerns: No Medical Review of Systems: unchanged Review of Systems Review of Systems Constitutional : No Weight loss, No Fever, No Chills, No Fatigue, No Malaise ENT/Mouth : No sore throat, No Rhinorrhea Eyes: No Eye Pain, No Swelling, No Redness Cardiovascular : No Chest Pain, No SOB, No Dyspnea on Exertion, No Orthopnea, No Edema, No Palpitations Respiratory : No Cough, No Sputum, No Wheezing Gastrointestinal : No Nausea, No Vomiting, No Diarrhea, No Constipation, No abdominal Pain, No Hematochezia, No Melena Genitourinary : No Dysuria, No Urinary Frequency, No Hematuria, Musculoskeletal : No joint pain, No Myalgias, No Joint Swelling Skin : No Skin Lesions, No rash Neuro : No Weakness, No Numbness, No Dizziness, No Headache Psych : No Anxiety/Panic, No Depression, + SI & HI All other systems reviewed and are negative Yes all other systems are reviewed and are negative Constitutional: Reports as per HPI Eyes: Reports as per HPI Reports as per HPI Cardiovascular: Reports as per HPI Respiratory: Reports as per HPI Gastrointestinal: Reports as per HPI Genitourinary: Reports as per HPI Musculoskeletal: Reports as per HPI Skin/Breast: Reports as per HPI Reports as per HPI Psychiatric: Reports as per HPI Endocrine: Reports as per HPI Hematologic/Lymphatic: Reports as per HPI Allergic/Immunologic: Reports as per HPI Mental Status Exam Mental Status Exam Narrative: Pt is alert and oriented; behavior is cooperative, friendly and calm; patient is not in distress; dressed in casual attire; mood is described as good and affect congruent; eye contact appropriate; Speech is normal rate, volume and prosody and not pressured; no psychomotor agitation/retardation present; thought process is organized and goal directed; Thought content is on tx; otherwise pertinent to relevant topics; Patient denies any delusions at this time. Patient stated, I no longer think I'm a vampire or feel like I need to drink blood . denies any SI/HI. There is no evidence of perceptual disturbance. Patients insight and judgment appear fair. Diagnostics Vital Signs (24Hr): Vital Signs - 24 hr 06/28/22 18:52 06/29/22 08:15 Temperature 99.0 F 97.0 F Pulse Rate 81 69 Respiratory Rate 18 18 Blood Pressure 130/58 L 116/61 Pulse Oximetry 100 98 Oxygen Delivery Method Room Air Room Air BMI result Body Mass Index 32.5 Labs 06/24/22 23:31 06/27/22 08:08 Labs: Laboratory Results - last 48 hr 06/27/22 08:08 Sodium 141 Potassium 4.7 Chloride 105 Carbon Dioxide 31 H Anion Gap 10 L BUN 10 Creatinine 0.94 Estim Creat Clear Calc 143.5 Estimated GFR > 60 Fasting Glucose 85 Calcium 9.8 Total Bilirubin 0.7 AST 25 ALT 52 H Alkaline Phosphatase 73 Total Protein 7.0 Albumin 4.3 Triglycerides 324 Cholesterol 219 LDL Cholesterol, Calc 116 HDL Cholesterol 39 Vitamin B12 542 TSH 0.99 Medications Medications Current Medications Acetaminophen (Acetaminophen 325 Mg Tablet) 650 mg PO Q6H PRN PRN Reason: Headache/Pain Mild Scale (1-3) Last Admin: 06/28/22 15:57 Dose: 650 mg Al Hydroxide/Mg Hydroxide (Magnesium Hydrox/Alum Hydrox 30 Ml Oral.Susp) 30 ml PO Q6H PRN PRN Reason: Heartburn/Nausea Aripiprazole (Aripiprazole 10 Mg Tablet) 10 mg PO DAILY [facility] Last Admin: 06/29/22 08:19 Dose: 10 mg Fluoxetine HCl (Fluoxetine Hcl 20 Mg Capsule) 80 mg PO DAILY [facility] Last Admin: 06/29/22 08:18 Dose: 80 mg Hydroxyzine HCl (Hydroxyzine Hcl 50 Mg Tablet) 100 mg PO BEDTIME [facility] Last Admin: 06/28/22 20:03 Dose: 100 mg Magnesium Hydroxide (Milk Of Magnesia 30 Ml Oral.Susp) 30 ml PO DAILY PRN PRN Reason: Constipation Non-Formulary Medication (Methylphenidate Hcl) 54 mg PO DAILY@0800 [facility] Pyridoxine HCl (Pyridoxine Hcl (Vitamin B6) 50 Mg Tablet) 100 mg PO DAILY [facility] Last Admin: 06/29/22 08:19 Dose: 100 mg Trazodone HCl (Trazodone Hcl 50 Mg Tablet) 50 mg PO BEDTIME MRX1 PRN PRN Reason: Insomnia Last Admin: 06/28/22 23:18 Dose: 50 mg Vitamin D (Cholecalciferol (Vitamin D3) 25 Mcg Tablet) 25 mcg PO DAILY [facility] Last Admin: 06/29/22 08:19 Dose: 25 mcg Allergies Allergies Allergy/AdvReac Type Severity Reaction Status Date / Time amoxicillin Allergy Rash Verified 06/24/22 23:17 Assessment & Plan Assessment & Plan (1) Delusional disorder: Status: Acute Code(s): F22 - Delusional disorders Assessment and Plan: r/o schizoaffective Plan Patient is a 22 year old male who carries a diagnosis of schizoaffective d/o depressive type, that self-presented to the [facility] secondary to increasing delusional ideations and thoughts of cutting himself and others, to drink their blood in face of going off medications. -Patient reports he would like to receive an injectable medication so he doesn't have to take medication everyday . Patient calm and cooperative during 1:1 meeting; patient organized in speech and behavior. 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 Based off of initial interview with T/W, Will change dx to delusional d/o since pt denying any history of auditory or visual hallucinations; however, will leave as provisional diagnosis since meeting patient for the 1st time. 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 There is some thoughts about some OCD like symptoms as patient reports he feels he should drink people's blood; patient has a history of depression PLAN: CV 15 min safety checks Obtain collateral information DC Haldol 5mg PO daily; patient was only ever on total daily dose of 1.5 mg daily; since patient reports Abilialcony was working, will DC this med to avoid polypharmacy Continue Abilify 10mg PO daily; will consider long-acting Abilify Maintena Continue Fluoxetine 80mg PO daily Continue Hydroxyzine 100mg PO bedtime Past med trials: Risperidone Loiovelvet Parsons 06/28: Patient reports feeling fine today. He reports that he only believe I'm a vampire and want to drink blood when I'm not on my medication . He continues to believe he is a vampire and needs to drink his own blood. However, he no longer feels he needs to cut and drink other peoples blood . Patient continues to be interested in long acting injectable medication. Patients insight and judegement continue to be poor at this time. 06/29: Patient expressed he would like to continue taking oral mediations rather than receiving a long acting injectable. His plan is to put reminders on his and hPatient is hoping to be discharged tomorrow. Will review with team to determine if patient should stay til Sunday. Continue medications as ordered. Patient educated on: medication risk/benefits Informed Consent: understands Reason for continued inpatient stay Substantial Risk for: med/psych decompensation Time Spent With Patient Time: Total time managing care of this patient today ____ minutes. Documented by User: Chidi Alfaro MD 06/29/22 12:50 Subjective Subjective Reason For Visit: Psychosis Diagnostics Labs 06/24/22 23:31 06/27/22 08:08 Assessment & Plan Assessment & Plan (1) Delusional disorder: Status: Acute Code(s): F22 - Delusional disorders Plan Patient is a 22 year old male who carries a diagnosis of schizoaffective d/o depressive type, that self-presented to the [facility] secondary to increasing delusional ideations and thoughts of cutting himself and others, to drink their blood in face of going off medications. -Patient reports he would like to receive an injectable medication so he doesn't have to take medication everyday . Patient calm and cooperative during 1:1 meeting; patient organized in speech and behavior. 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 Based off of initial interview with T/W, Will change dx to delusional d/o since pt denying any history of auditory or visual hallucinations; however, will leave as provisional diagnosis since meeting patient for the 1st time. 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 There is some thoughts about some OCD like symptoms as patient reports he feels he should drink people's blood; patient has a history of depression PLAN: CV 15 min safety checks Obtain collateral information DC Haldol 5mg PO daily; patient was only ever on total daily dose of 1.5 mg daily; since patient reports Abilify was working, will DC this med to avoid polypharmacy Continue Abilify 10mg PO daily; will consider long-acting Abilify Maintena Continue Fluoxetine 80mg PO daily Continue Hydroxyzine 100mg PO bedtime Past med trials: Risperidone Seroquel Harper Parsons 06/28: Patient reports feeling fine today. He reports that he only believe I'm a vampire and want to drink blood when I'm not on my medication . He continues to believe he is a vampire and needs to drink his own blood. However, he no longer feels he needs to cut and drink other peoples blood . Patient continues to be interested in long acting injectable medication. Patients insight and judegement continue to be poor at this time. 06/29: Patient expressed he would like to continue taking oral mediations rather than receiving a long acting injectable. His plan is to put reminders on his and hPatient is hoping to be discharged tomorrow. Will review with team to determine if patient should stay til Sunday. Continue medications as ordered. discussed with WATER/WASTEWATER PROJECT MANAGER and agree with treatment plan Reason for continued inpatient stay Substantial Risk for: stable for discharge
[2022-06-29 16:51] VITALS: BP 129/78; PULSE 86; RESP 18; TEMP 36.4; O2SAT 98
[2022-06-29] MEDS: traZODone HCL 50 MG TABLET PO (21:06)
[2022-06-29] MEDS: hydrOXYzine HCL 50 MG TABLET 100 MG PO (21:06)
[2022-06-30] MEDS: Pyridoxine HCl (Vitamin B6) 50 MG TABLET 100 MG PO (08:10)
[2022-06-30] MEDS: Cholecalciferol (Vitamin D3) 25 MCG TABLET PO (08:10)
[2022-06-30] MEDS: ARIPiprazole 10 MG TABLET PO (08:11)
[2022-06-30] MEDS: FLUoxetine HCl 20 MG CAPSULE 80 MG PO (08:11)
[2022-06-30 08:35] VITALS: BP 127/73; PULSE 71; RESP 16; TEMP 36.5; O2SAT 98
--- NOTE | 2022-06-30 13:13 | PM.PSYDC ---
DS: Providers Provider Date of Service: 06/30/22 <Cheyanne Proctor NP - Last Filed: 06/30/22 14:45> Date of admission: 06/26/22 18:09 <Cheyanne Proctor NP - Last Filed: 06/30/22 14:45> Date of discharge: 06/30/22 <Cheyanne Proctor NP - Last Filed: 06/30/22 14:45> Primary care physician: Unknown Physician <Cheyanne Proctor NP - Last Filed: 06/30/22 14:45> Attending physician on admission: Cheyanne Proctor <Cheyanne Proctor NP - Last Filed: 06/30/22 14:45> Attending physician on discharge: Cheyanne Proctor <Cheyanne Proctor NP - Last Filed: 06/30/22 14:45> DS: Diagnosis Discharge Diagnosis (1) Delusional disorder: Status: Acute <Cheyanne Proctor NP - Last Filed: 06/30/22 14:45> DS: Medications Discharge Medications Home Medications: Home Medications Medication Instructions Recorded Confirmed aripiprazole 10 mg tablet 10 mg PO DAILY 06/24/22 06/24/22 cholecalciferol (vitamin D3) 25 25 mcg PO DAILY 06/24/22 06/24/22 mcg (1,000 unit) tablet (Vitamin D3) fluoxetine 20 mg capsule 80 mg PO DAILY 06/24/22 06/24/22 hydroxyzine HCl 50 mg tablet 100 mg PO BEDTIME 06/24/22 06/24/22 methylphenidate HCl 54 mg 54 mg PO QAM 06/24/22 06/24/22 tablet,extended release 24 hr pyridoxine (vitamin B6) 100 mg 100 mg PO DAILY 06/24/22 06/24/22 tablet <Cheyanne Proctor NP - Last Filed: 06/30/22 14:45> Mental Status Exam Mental Status Exam Narrative: Pt is alert and oriented; behavior is cooperative, friendly and calm; patient is not in distress; dressed in casual attire; mood is described as good and affect congruent; eye contact appropriate; Speech is normal rate, volume and prosody and not pressured; no psychomotor agitation/retardation present; thought process is organized and goal directed; Thought content is on tx; otherwise pertinent to relevant topics and without any delusional content, paranoid ideations or grandiosity; denies any SI/HI. There is no evidence of perceptual disturbance.Patients insight and judgment appear fair. <Cheyanne Proctor NP - Last Filed: 06/30/22 14:45> Ability to Follow Directions: Good <Lex Cardoza MD - Last Filed: 06/30/22 15:30> Data Data Completed and Pending Completed studies during hospitalization [Text1]: 06/24/22 06/24/22 06/24/22 23:19 23:31 23:31 WBC 8.8 RBC 5.05 Hgb 14.8 Hct 43.8 MCV 86.7 MCH 29.3 MCHC 33.8 RDW 12.5 Plt Count 253 MPV 8.4 L Immature Gran % (Auto) 0.2 Neut % (Auto) 54.2 Lymph % (Auto) 38.1 [place] % (Auto) 5.2 Eos % (Auto) 1.7 Baso % (Auto) 0.6 Lymph # (Auto) 3.4 [place] # (Auto) 0.5 Eos # (Auto) 0.2 Baso # (Auto) 0.1 Abs Immat Gran (auto) 0.02 Absolute Neuts (auto) 4.8 Absolute Nucleated RBC 0.000 Nucleated RBC % (auto) 0.0 Sodium 140 Potassium 4.2 Chloride 106 Carbon Dioxide 26 Anion Gap 12 BUN 9 Creatinine 0.82 Estim Creat Clear Calc 164.5 Estimated GFR > 60 Random Glucose 114 Fasting Glucose Estimat Average Glucose Hemoglobin A1c % Calcium 10.0 Total Bilirubin 0.4 AST 22 ALT 45 H Alkaline Phosphatase 80 Total Protein 7.2 Albumin 4.6 Triglycerides Cholesterol LDL Cholesterol, Calc HDL Cholesterol Vitamin B12 TSH Urine Color Urine Appearance Urine pH Ur Specific [place] Urine Protein Urine Glucose (UA) Urine Ketones Urine Blood Urine Nitrite Ur Leukocyte Esterase Urine Opiates Screen Urine Fentanyl Screen Ur Barbiturates Screen Ur Phencyclidine Scrn Ur Amphetamines Screen U Benzodiazepines Scrn Urine Cocaine Screen U Marijuana (THC) Screen Ethyl Alcohol COVID-19 (ABI) Negative COVID-19 Clin Com See Note 06/24/22 06/24/22 06/26/22 23:31 23:41 13:33 WBC RBC Hgb Hct MCV MCH MCHC RDW Plt Count MPV Immature Gran % (Auto) Neut % (Auto) Lymph % (Auto) [place] % (Auto) Eos % (Auto) Baso % (Auto) Lymph # (Auto) [place] # (Auto) Eos # (Auto) Baso # (Auto) Abs Immat Gran (auto) Absolute Neuts (auto) Absolute Nucleated RBC Nucleated RBC % (auto) Sodium Potassium Chloride Carbon Dioxide Anion Gap BUN Creatinine Estim Creat Clear Calc Estimated GFR Random Glucose Fasting Glucose Estimat Average Glucose Hemoglobin A1c % Calcium Total Bilirubin AST ALT Alkaline Phosphatase Total Protein Albumin Triglycerides Cholesterol LDL Cholesterol, Calc HDL Cholesterol Vitamin B12 TSH Urine Color Yellow Urine Appearance Clear Urine pH 6.5 Ur Specific [place] <= 1.005 Urine Protein Negative Urine Glucose (UA) Negative Urine Ketones Negative Urine Blood Negative Urine Nitrite Negative Ur Leukocyte Esterase Negative Urine Opiates Screen Not Detected Urine Fentanyl Screen Not Detected Ur Barbiturates Screen Not Detected Ur Phencyclidine Scrn Not Detected Ur Amphetamines Screen Not Detected U Benzodiazepines Scrn Not Detected Urine Cocaine Screen Not Detected U Marijuana (THC) Screen Not Detected Ethyl Alcohol < 10 COVID-19 (ABI) COVID-19 Clin Com 06/27/22 06/27/22 08:08 08:08 WBC RBC Hgb Hct MCV MCH MCHC RDW Plt Count MPV Immature Gran % (Auto) Neut % (Auto) Lymph % (Auto) [place] % (Auto) Eos % (Auto) Baso % (Auto) Lymph # (Auto) [place] # (Auto) Eos # (Auto) Baso # (Auto) Abs Immat Gran (auto) Absolute Neuts (auto) Absolute Nucleated RBC Nucleated RBC % (auto) Sodium 141 Potassium 4.7 Chloride 105 Carbon Dioxide 31 H Anion Gap 10 L BUN 10 Creatinine 0.94 Estim Creat Clear Calc 143.5 Estimated GFR > 60 Random Glucose Fasting Glucose 85 Estimat Average Glucose 103 Hemoglobin A1c % 5.2 Calcium 9.8 Total Bilirubin 0.7 AST 25 ALT 52 H Alkaline Phosphatase 73 Total Protein 7.0 Albumin 4.3 Triglycerides 324 Cholesterol 219 LDL Cholesterol, Calc 116 HDL Cholesterol 39 Vitamin B12 542 TSH 0.99 Urine Color Urine Appearance Urine pH Ur Specific [place] Urine Protein Urine Glucose (UA) Urine Ketones Urine Blood Urine Nitrite Ur Leukocyte Esterase Urine Opiates Screen Urine Fentanyl Screen Ur Barbiturates Screen Ur Phencyclidine Scrn Ur Amphetamines Screen U Benzodiazepines Scrn Urine Cocaine Screen U Marijuana (THC) Screen Ethyl Alcohol COVID-19 (ABI) COVID-19 Clin Com <KEILA Ocampo Last Filed: 06/30/22 14:45> DS: Summary Hospital Course Hospital Course: Patient is a 22 year old male who carries a diagnosis of schizoaffective d/o depressive type, that self-presented to the [facility] ER secondary to increasing delusional ideations and thoughts of cutting himself and others, to drink their blood in face of going off medications. -Patient reports he would like to receive an injectable medication so he doesn't have to take medication everyday . Patient calm and cooperative during 1:1 meeting; patient organized in speech and behavior. 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 Based off of initial interview with T/W, Will change dx to delusional d/o since pt denying any history of auditory or visual hallucinations; however, will leave as provisional diagnosis since meeting patient for the 1st time. 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 There is some thoughts about some OCD like symptoms as patient reports he feels he should drink people's blood; patient has a history of depression DC Haldol 5mg PO daily; patient was only ever on total daily dose of 1.5 mg daily; since patient reports Abilify was working, will DC this med to avoid polypharmacy Continue Abilify 10mg PO daily; will consider long-acting Abilify Maintena Continue Fluoxetine 80mg PO daily Continue Hydroxyzine 100mg PO bedtime Past med trials: Risperidone Seroquel Harper Parsons 06/28: Patient reports feeling fine today. He reports that he only believe I'm a vampire and want to drink blood when I'm not on my medication . He continues to believe he is a vampire and needs to drink his own blood. However, he no longer feels he needs to cut and drink other peoples blood . Patient continues to be interested in long acting injectable medication. Patients insight and judegement continue to be poor at this time. 06/29: Patient expressed he would like to continue taking oral mediations rather than receiving a long acting injectable. His plan is to put reminders on his and hPatient is hoping to be discharged tomorrow. Will review with team to determine if patient should stay til Sunday. Continue medications as ordered. T/W spoke with patients parents with patient consent. Parents stated they are okay with patient returning home and will assist him in remembering to take his medications daily. T/W also spoke with patients prescriber who believes patient appears to be at baseline based off of T/Wers assessment. Patient has an appointment next week with psychiatric provider . <Cheyanne Proctor NP - Last Filed: 06/30/22 14:45> Time spent discussing smoking cessation with patient: 3 to 10 minutes <Cheyanne Proctor NP - Last Filed: 06/30/22 14:45> Status at Discharge Cognitive/behavioral status at discharge: Risk assessment at time of discharge: Patient was interviewed prior to discharge and found to be fully oriented and without any SI or HI. Patient has insight and demonstrates good judgment in terms of wanting to pursue treatment. Patient is not in imminent risk of harm to self or others and has a safety plan that includes presenting to the closest ER or calling 911 if feeling unsafe. Patient has been observed closely by nursing and unit staff throughout admission; patient has not engaged in any behaviors that suggest dangerousness to self or others and has demonstrated appropriate behaviors and impulse control <Cheyanne Proctor NP - Last Filed: 06/30/22 14:45> Functional status at discharge: independent ambulation <Cheyanne Proctor NP - Last Filed: 06/30/22 14:45> Overall status at discharge: patient is back to baseline <Cheyanne Proctor NP - Last Filed: 06/30/22 14:45> Time Spent with Patient Time attestation: Total time managing care of this patient today ____ minutes. <Cheyanne Proctor NP - Last Filed: 06/30/22 14:45> Time spent: Less than 30 minutes <Cheyanne Proctor NP - Last Filed: 06/30/22 14:45> Discharge Plan Discharge Anticipated Discharge Date/Time: 06/30/22 15:00 <Cheyanne Proctor NP - Last Filed: 06/30/22 14:45> Patient Disposition: Home, Self-Care <Cheyanne Proctor NP - Last Filed: 06/30/22 14:45> Discharge Diagnosis: Delusional d/o <Cheyanne rPoctor NP - Last Filed: 06/30/22 14:45> Delusional d/o <Lex Cardoza MD - Last Filed: 06/30/22 15:30> Referrals: Dunia Sinha Helabrenda: Reena: Therapist [Other] - Tomorrow (Patient will need to follow-up with outpatient therapist as they did not respond prior to discharge.) Elizabeth Hickmanber [Other] - 07/04/22 10:00 am (Follow-up appointment with outpatient psychiatric provider) <Cheyanne Proctor NP - Last Filed: 06/30/22 14:45> Discharge Medications: Continued methylphenidate HCl 54 mg tablet extended release 24hr 54 mg PO QAM hydroxyzine HCl 50 mg tablet 100 mg PO BEDTIME pyridoxine (vitamin B6) 100 mg tablet 100 mg PO DAILY fluoxetine 20 mg capsule 80 mg PO DAILY aripiprazole 10 mg tablet 10 mg PO DAILY cholecalciferol (vitamin D3) [Vitamin D3] 25 mcg (1,000 unit) tablet 25 mcg PO DAILY Discontinued haloperidol 0.5 mg tablet 0.5 mg PO QAM haloperidol 0.5 mg tablet 1 mg PO BEDTIME <Cheyanne Proctor NP - Last Filed: 06/30/22 14:45> Discharge Orders: Discharge Order (Routine); Ordered 06/30/22 Ordered By: Cheyanne Proctor <Cheyanne Proctor NP - Last Filed: 06/30/22 14:45> Diet: Regular diet <Cheyanne Proctor NP - Last Filed: 06/30/22 14:45> Regular diet <Lex Cardoza MD - Last Filed: 06/30/22 15:30> Activity on Discharge: As tolerated <Cheyanne Proctor NP - Last Filed: 06/30/22 14:45> As tolerated <Lex Cardoza MD - Last Filed: 06/30/22 15:30> Stand Alone Forms: Patient Portal Discharge page, Community Support <Cheyanne Proctor NP - Last Filed: 06/30/22 14:45> Care Plan Goals: Maintain mood and safe behaviors Take medications as prescribed Practice coping skills Continue with outpatient providers and reach out to them as needed <Cheyanne Proctor NP - Last Filed: 06/30/22 14:45> Health Concerns: Mood stability and behaviors <Cheyanne Proctor NP - Last Filed: 06/30/22 14:45> Plan of Treatment: Follow up with your PCP, psychiatric provider and other outpatient providers regarding above concerns Take medications as prescribed <Cheyanne Proctor NP - Last Filed: 06/30/22 14:45> Assessment: Risk assessment at time of discharge: Patient was interviewed prior to discharge and found to be fully oriented and without any SI or HI. Patient has insight and demonstrates good judgment in terms of wanting to pursue treatment. Patient is not in imminent risk of harm to self or others and has a safety plan that includes presenting to the closest ER or calling 911 if feeling unsafe. Patient has been observed closely by nursing and unit staff throughout admission; patient has not engaged in any behaviors that suggest dangerousness to self or others and has demonstrated appropriate behaviors and impulse control. <Cheyanne Proctor NP - Last Filed: 06/30/22 14:45> Discharge Date/Time: 06/30/22 14:55 <Cheyanne Proctor NP - Last Filed: 06/30/22 14:45>
== END 2022-06-30 14:55 | disposition home or self-care (01) | DRG 750 ==
LOC: HO.ED 06-26 10:26 → HO.PM5 06-26 18:28
PROVIDERS: Emergency Medicine; Social Worker; Admitting Provider Psychiatry & Neurology Psychiatry; Emergency Provider Student in an Organized Health Care Education/Training Program; Visit Provider Registered Nurse
DX: F25.1 Schizoaffective disorder, depressive type (principal); R45.851 Suicidal ideations; R45.850 Homicidal ideations; Z91.148 Patient's other noncompliance with medication regimen for other reason; Z20.822 Contact with and (suspected) exposure to COVID-19; Z88.0 Allergy status to penicillin; Z79.899 Other long term (current) drug therapy
CPT/HCPCS: 36415; 80053; 80061; 80307; 81003; 82607; 83036; 84443; 85025; 87635; 99285; S9485